=== PATIENT | male | born 1955 | race Caucasian/White ===

== ENCOUNTER 2023-01-23 10:35 | Observation (INO) ==
--- NOTE | 2023-01-14 10:19 | PAT Medication Instructions ---
Medication Instructions Date of Service January 14, 2023 Home Medications lisinopril 10 mg tablet 10 mg PO QAM rivaroxaban 20 mg tablet (Xarelto) 20 mg PO HS ascorbic acid (vitamin C) 500 mg chewable tablet (Vitamin C) 500 mg PO QAM cholecalciferol (vitamin D3) 25 mcg (1,000 unit) capsule (Vitamin D3) 25 mcg PO QAM clobetasol 0.05 % topical cream 1 applic topical BID PRN Skin Irritation mupirocin 2 % topical ointment 1 applic topical BID PRN Skin Irritation Pentadecapeptide 1 cap PO QAM cyanocobalamin (vitamin B-12) 1,000 mcg tablet,extended release (Vitamin B-12 ER) 3,000 mcg PO QAM multivitamin 1 tab PO QAM vit C 250 mg-vit E 90 mg-zinc 40 mg-copper 1 jo-simiiw-drotnu capsule (PreserVision AREDS-2) 1 tab PO QAM ASK your prescriber and surgeon rivaroxaban 20 mg tablet (Xarelto) 20 mg PO HS STOP taking 2 weeks before surgery vit C 250 mg-vit E 90 mg-zinc 40 mg-copper 1 eu-fmrsmr-fooelj capsule (PreserVision AREDS-2) 1 tab PO QAM Pentadecapeptide 1 cap PO QAM STOP taking 24 hours before surgery clobetasol 0.05 % topical cream 1 applic topical BID PRN Skin Irritation mupirocin 2 % topical ointment 1 applic topical BID PRN Skin Irritation DO NOT take the morning of surgery lisinopril 10 mg tablet 10 mg PO QAM ascorbic acid (vitamin C) 500 mg chewable tablet (Vitamin C) 500 mg PO QAM cholecalciferol (vitamin D3) 25 mcg (1,000 unit) capsule (Vitamin D3) 25 mcg PO QAM cyanocobalamin (vitamin B-12) 1,000 mcg tablet,extended release (Vitamin B-12 ER) 3,000 mcg PO QAM multivitamin 1 tab PO QAM OTHERWISE NOTHING TO EAT OR DRINK AFTER MIDNIGHT Other Notes If you have any questions please call us at [phone] or [phone] or [phone] or [phone]
--- NOTE | 2023-01-18 13:01 | Anesthesiology Consultation ---
Date of Service January 18, 2023 Assessment & Plan (1) Encounter for pre-operative examination: - awaiting surgeon ordered cardiology clearance. Will also request copy of cardionet and carotid scan. - cardiology office visit 10/08/22: "...he was working when he started feeling dizziness. [place] better when he was sitting and improved when he sat down...coming and going through the day. At one point he became severely hot, sweaty and vomited...no full syncope or LOC...twice more over the following week. Feels like he is falling. When this happens he always feels like he is leaning to the L...does get some SOB with activity...episode of near syncope with no full LOC. Cannot r/o arrhthymia. Will check cardionet. Check carotid scan...check echo...mother having CAD in her early 50s and two sisters who unexpectedly..." Return in about 4 months. Outpatient joint assessment: Patient is currently scheduled for inpatient pathway. If re-evaluated and patient/surgeon requests outpatient pathway, phillip opal is not recommended candidate for outpatient joint program from anesthesia standpoint. Chart Review Chart Review: Pending: Refer to Additional Notes / Consult section and Patient seen in Pre Admission Testing Teaching & Discussion Pre-Anesthesia Teaching/Discussion Notes: Instructed NPO after midnight before surgery, except medications with 15 cc of water. Medication instructions provided according to the PAT guidelines. History Surgery Operation Date: 01/23/23 07:15 Proposed Procedures p Right Reverse Total Shoulder Arthroplasty - Sidney Jiménez MD Surgeon's office was made aware per patient is to have right total shoulder replacement, NOT reverse TSA. Damaris adjusted this in their records and Aisha with OR confirmed the change. Booking now shows right total shoulder arthroplasty Height/Weight Height: 5 ft 11 in Weight: 108.6 kg Allergies Allergy/AdvReac Type Severity Reaction Status Date / Time No Known Allergies Allergy Verified 01/11/23 10:03 Medications Home Medications Medication Instructions Recorded Confirmed Last Taken lisinopril 10 mg tablet 10 mg PO QAM 07/07/20 01/11/23 09/24/22 rivaroxaban 20 mg tablet (Xarelto) 20 mg PO HS 07/07/20 01/11/23 09/23/22 ascorbic acid (vitamin C) 500 mg 500 mg PO QAM 05/01/23 08/18/23 04/30/23 chewable tablet (Vitamin C) cholecalciferol (vitamin D3) 25 25 mcg PO QAM 09/24/22 01/11/23 09/23/22 mcg (1,000 unit) capsule (Vitamin D3) clobetasol 0.05 % topical cream 1 applic topical BID PRN Skin 09/24/22 01/11/23 Unknown Irritation mupirocin 2 % topical ointment 1 applic topical BID PRN Skin 09/24/22 01/11/23 Unknown Irritation Pentadecapeptide 1 cap PO QAM 01/11/23 01/11/23 Unknown cyanocobalamin (vitamin B-12) 3,000 mcg PO QAM 01/11/23 01/11/23 Unknown 1,000 mcg tablet,extended release (Vitamin B-12 ER) multivitamin 1 tab PO QAM 01/11/23 01/11/23 Unknown vit C 250 mg-vit E 90 mg-zinc 40 1 tab PO QAM 01/11/23 01/11/23 Unknown mg-copper 1 fr-snfxpi-kjuwat capsule (PreserVision AREDS-2) Past Medical History Medical History (Updated 01/18/23 @ 13:04 by Aleksandra Manuel PA-C) Anticoagulant long-term use xarelto daily History of pulmonary embolus (PE) 2018--unknown cause; currently on xarelto Hypertension controlled, stable per pt Near syncope 09/24/22, came to [facility] ER, had "lots of testing," no cause found; f/u dr. weaver on 10/08/22, had ekg and holter monitor>no findings Sleep apnea does not use device-just recently diagnosed Patient denies h/o stroke, seizures, heart attack, heart failure, DM, or blood transfusions. Exercise / Class Metabolic Activity II 4-5 Yardwork/Stairs/Walk up hill (denies chest discomfort or shortness of breath with 1 FOS) Past Family History Family History Mother Cardiac disorder Myocardial infarction COPD (chronic obstructive pulmonary disease) Hypertension Uncle Prostate cancer Diabetes Cardiac disorder Father Lung cancer Hypertension Grandmother Diabetes Other No family history of adverse response to anesthesia Denies family history of Ovarian cancer Breast cancer Colorectal cancer Past Surgical History Surgical History History of tonsillectomy S/P colonoscopy (12/14/15) Status post biopsy of skin (07/01/18) Pigemented seborrheic keratosis Past Anesthesia History No Hx of Anesthesia Complications and No Family Hx of Anesthesia Complications History of PONV No Hx of PONV and No Hx of Motion Sickness Social History Smoking Status: Never smoker Do You Dip or Chew Tobacco: No Hx Alcohol Use: Yes Alcohol type: beer alcohol intake frequency: a few times a month Hx Substance Use: No substance use type: does not use Review of Systems Patient denies chest pain, shortness of breath, dyspnea on exertion, reflux, fever, chills, cough, wheezing, or palpitations. Physical Exam Vital Signs Vitals BP 120/72 P 93 TEMP 98.6 SP02 94% on RA RESP 18 Physical Patient resting comfortably in chair in NAD, alert and oriented, responding appropriately throughout visit Full cervical extension range of motion without pain TMD 3.5 finger breadths Mallampati Score 3 Dentition: several caps/crowns, denies chipped or loose teeth, implants or bridges Lungs: normal respiratory effort. Good air movement, clear throughout to auscultation, no adventitious breath sounds Cardiac: regular rate and rhythm, no murmurs noted Carotid arteries: negative bruit bilat Lab Results Anesthesia Preop Results Results Anesthesia Widget: WBC 5.00 K/ul (4.8-10.8) 01/18/23 Hgb 13.7 g/dl (14.0-18.0) L 01/18/23 Hct 39.7 % (42.0-52.0) L 01/18/23 Plt 257 K/uL (130-400) 01/18/23 Na 140 mmol/L (136-145) 01/18/23 K 3.7 mmol/L (3.5-5.1) 01/18/23 Cl 106 mmol/L (98-107) 01/18/23 CO2 27 mmol/L (21-32) 01/18/23 BUN 19 mg/dl (6-23) 01/18/23 Creat 0.86 mg/dl (0.6-1.4) 01/18/23 Glucose Level 128 mg/dl (70-99(Fasting)) H 01/18/23 PT 11.2 Seconds (9.0-12.0) 01/18/23 PTT 29.3 Seconds (21.0-31.0) 01/18/23 INR 1.0 (0.9-1.1) 01/18/23 Urine Color Yellow 01/18/23 Urine Appearance Clear (Clear) 01/18/23 Urine pH 5.5 (4.5-7.5) 01/18/23 Urine Specific [place] 1.020 (1.000-1.030) 01/18/23 Urine Protein Negative (Negative) 01/18/23 Urine Glucose (UA) Negative (Negative) 01/18/23 Urine Ketones Negative (Negative) 01/18/23 Urine Blood Negative (Negative) 01/18/23 Urine Nitrite Negative (Negative) 01/18/23 Urine Bilirubin Negative (Negative) 01/18/23 Urine Urobilinogen Negative (Negative) 01/18/23 Urine Leukocyte Esterase Negative (Negative) 01/18/23 Blood Type A Positive 01/18/23 Antibody Screen NEGATIVE 01/18/23 Testing Electrocardiogram Date: 09/24/22 Sinus rhythm with marked sinus arrhythmia, rate 71 bpm Chest X-Ray Date: 09/24/22 *1view* Cardiomegaly without acute process Echocardiogram Date: 11/14/22 EF 55-60% No significant valvular pathology Other Testing Head CT 09/24/22 No acute intracranial process. Chest CTA 09/24/22 No evidence of acute pulmonary embolism. CT abdomen pelvis 09/24/22 No acute findings in the abdomen or pelvis.
--- NOTE | 2023-01-21 20:23 | History & Physical Report ---
Date of Service January 21, 2023 Assessment & Plan (1) Primary osteoarthritis, right shoulder: Plan: Treatment options discussed with patient. He has failed conservative measures and would like to proceed with surgery. Risks, benefits and alternatives to surgery including but not limited to infection, DVT, pain, stiffness, need for revision surgery, damage to blood vessels, damage to nerves, PE, , were discussed with the patient and they wish to proceed. Plan on simplicity right total shoulder arthroplasty scheduled for [facility] on 01/23/[address] Jiménez. Resume home Xarelto post op. Plan on outpatient therapy post op. All questions answered. He will follow up post op. History of Present Illness Chief Complaint: Right shoulder pain Primary Care Provider: Yamil Yip, 67yo male with PMHx significant for PE, HTN, CHASE, carotid artery stenosis who presents with ongoing right shoulder pain. Pain is interfering with his daily acitivity. He has failed conservative measures. He would like to proceed with surgical intervention. Patient denies headaches, sweats, fevers, chills, double vision, blurred vision, cough, sore throat, dysphagia, chest pain, sob, wheezing, n/v/d/c, numbness, tingling, fatigue, urinary symptoms, mood disorders. ROS positive for right shoulder pain and stiffness. Allergies Allergy/AdvReac Type Severity Reaction Status Date / Time No Known Allergies Allergy Verified 01/11/23 10:03 Home Medications Medication Instructions Recorded Confirmed Type lisinopril 10 mg tablet 10 mg PO QAM 07/07/20 01/11/23 History rivaroxaban 20 mg tablet (Xarelto) 20 mg PO HS 07/07/20 01/11/23 History ascorbic acid (vitamin C) 500 mg 500 mg PO QAM 09/24/22 01/11/23 History chewable tablet (Vitamin C) cholecalciferol (vitamin D3) 25 25 mcg PO QAM 09/24/22 01/11/23 History mcg (1,000 unit) capsule (Vitamin D3) clobetasol 0.05 % topical cream 1 applic topical BID PRN Skin 09/24/22 01/11/23 History Irritation mupirocin 2 % topical ointment 1 applic topical BID PRN Skin 09/24/22 01/11/23 History Irritation Pentadecapeptide 1 cap PO QAM 01/11/23 01/11/23 History cyanocobalamin (vitamin B-12) 3,000 mcg PO QAM 01/11/23 01/11/23 History 1,000 mcg tablet,extended release (Vitamin B-12 ER) multivitamin 1 tab PO QAM 01/11/23 01/11/23 History vit C 250 mg-vit E 90 mg-zinc 40 1 tab PO QAM 01/11/23 01/11/23 History mg-copper 1 ur-pvcoqh-jwzhyv capsule (PreserVision AREDS-2) Past Med/Surg History Medical History (Updated 01/21/23 @ 20:20 by Isidro Lopez PA-C) Anticoagulant long-term use xarelto daily Carotid artery stenosis < 50% stenosis ICAs bilat History of pulmonary embolus (PE) 2018--unknown cause; currently on xarelto Hypertension controlled, stable per pt Near syncope 09/24/22, came to [facility] ER, had "lots of testing," no cause found; f/u dr. weaver on 10/08/22, had ekg and holter monitor>no findings Sleep apnea does not use device-just recently diagnosed Surgical History History of tonsillectomy S/P colonoscopy (12/14/15) Status post biopsy of skin (07/01/18) Pigemented seborrheic keratosis Family History Mother Cardiac disorder Myocardial infarction COPD (chronic obstructive pulmonary disease) Hypertension Uncle Prostate cancer Diabetes Cardiac disorder Father Lung cancer Hypertension Grandmother Diabetes Other No family history of adverse response to anesthesia Denies family history of Ovarian cancer Breast cancer Colorectal cancer Social History Smoking Status: Never smoker Second Hand Exposure: Yes (hx-none for 7 years); Do You Dip or Chew Tobacco: No; Hx Alcohol Use: Yes Alcohol type: beer Hx Substance Use: No Preferred Language: Kazakh Communication Ability: Effective Visual Impairment: No Limitations Hearing Ability: Normal Rehab Physician Required: No Beliefs That Will Affect Care: None marital status: Single Current Living Situation: Significant Other current occupational status: employed 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 Feels Safe at Home: Yes Childhood Exposure to Second-Hand Smoke: Yes Dental Care, Regularly: Yes Physical Activity Frequency: 1-2 Times per Week Seatbelt Use: sometimes Sunscreen Use: No Assistive Devices: None Review of Systems All systems reviewed & are unremarkable except as noted in HPI & below Physical Exam Constitutional: well developed and well nourished; no acute distress Eyes: PERRL, conjunctivae normal, anicteric sclerae ENMT: external ear and nose normal, oropharynx normal Neck: trachea midline, no thyromegaly Respiratory: normal respiratory effort, lungs clear to auscultation Cardiovascular: RRR, no murmur, no edema Musculoskeletal: Right shoulder: Painful ROM with crepitation. Diffuse tenderness. ER to 30 degrees. FF to 100 degrees. Abduction to 50 degrees. Strength is normal. Skin: no rashes, warm and dry Neurologic: patellar DTR's 2+ bilat, sensation intact Psychiatric: A+Ox3, euthymic affect Results & Data Diagnostic Findings Right shoulder radiographs demonstrate endstage osteoarthritis right shoulder, bone on bone GH joint. MRI demonstrates intact rotator cuff.
[~2023-01-23 10:35] MED LIST: ACETAMINOPHEN 500 MG TAB PO SCH; BUPIVACAINE 0.5 % 5 MG/1 ML PF 10ML VIAL ONE; CeleBREX 200 MG CAP PO SCH; FAMOTIDINE 20 MG TAB PO SCH; GABAPENTIN 300 MG CAP PO SCH; LR 15ML/HR IV SCH; LR 60ML/HR IV SCH; METOCLOPRAMIDE HCL 10 MG TABLET PO SCH; TRANEXAMIC ACID 1,000 MG **IV Intra-op IV SCH; TRANEXAMIC ACID 1,000 MG **IV Pre-op IV SCH; ceFAZolin 2000MG 2,000 MG/15 ML SYR IV SCH; dexAMETHasone 4 MG TAB PO SCH
[2023-01-23] MEDS ORDERED: ONDANSETRON INJ 2 MG/ML 2 ML VIAL IV PRN ×2 (11:11→18:00)
[2023-01-23] MEDS ORDERED: ATROPINE SULFATE 0.1 MG/ML 10ML SYR IV PRN (11:11)
[2023-01-23] MEDS ORDERED: fentaNYL citrate PF 100 MCG/2 ML VIAL IV PRN (11:11)
[2023-01-23] MEDS ORDERED: ePHEDrine sulfate 50 MG/ML AMP IV PRN (11:11)
[2023-01-23] MEDS ORDERED: MIDAZOLAM HCL 1 MG/ML 2ML VIAL ONE (12:34)
[2023-01-23] MEDS ORDERED: PROPOFOL IV EMULSION 10 MG/ML 20 ML VIAL IV ONE (12:35)
[2023-01-23] MEDS ORDERED: LIDOCAINE 2% 2 ML VIAL/AMP(20MG/ML) INFIL ONE (12:35)
[2023-01-23] MEDS ORDERED: ROCURONIUM BROMIDE 10 MG/ML 5 ML VIAL IV ONE (12:35)
[2023-01-23] MEDS ORDERED: fentaNYL citrate PF 100 MCG/2 ML VIAL ONE (12:48)
--- NOTE | 2023-01-23 13:25 | History & Physical Bridge Note ---
Date of Service January 23, 2023 History & Physical Bridge Note I have examined the patient, reviewed the History & Physical and in the interval since the performance of the History & Physical I have noted the following changes of clinical significance: no changes noted
[2023-01-23] MEDS ORDERED: EpINEphrine HCL INJ 1 MG/ML 1ML SYRINGE ONE (13:47)
[2023-01-23] MEDS ORDERED: ePHEDrine sulfate 50 MG/ML AMP ONE (14:40)
[2023-01-23] MEDS ORDERED: DEXAMETHASONE SOD INJ 4 MG/ML VIAL ONE (14:40)
[2023-01-23] MEDS ORDERED: ONDANSETRON INJ 2 MG/ML 2 ML VIAL ONE (14:44)
--- NOTE | 2023-01-23 16:44 | Post Operative Brief Note ---
Immediate Post Op Note v1 Date of Surgery January 23, 2023 Pre & Post Diagnosis Operation Date: 01/23/23 12:15 Pre-Op Diagnosis: Right Shoulder Osteoarthritis, biceps tendinopathy Post-Op Diagnosis: Right Shoulder Osteoarthritis, biceps tendinopathy degenerative glenoid labral tearing I identified the patient and participated in the time-out.: Yes Procedure Operation Date: 01/23/23 12:15 Actual Procedures p Right Total Shoulder Arthroplasty, Biceps Tenodesis(Right) - Sidney Jiménez MD Surgeon Sidney Jiménez MD Ladle Operator Isidro DODGE Estimated Blood Loss 100 Findings Consistent with Post-Op Diagnosis Specimens Humeral head Drains Hemovac Drain Anesthesia Type General Regional Complications none Disposition Disposition: Recovery Room Overlapping Procedure I was immediately available: during the entire case.
[2023-01-23] MEDS ORDERED: GLYCOPYRROLATE 0.2 MG/ML VIAL ONE (17:07)
[2023-01-23] MEDS ORDERED: NEOSTIGMINE METHYLSULFATE 1 MG/ML 10ML VIAL ONE (17:07)
--- NOTE | 2023-01-23 17:13 | Operative Report ---
Post Operative Report Pre & Post Diagnosis Operation Date: 01/23/23 12:15 Pre-Op Diagnosis: Right Shoulder end-stage glenohumeral osteoarthritis with biceps tendinopathy Post-Op Diagnosis: Right Shoulder end-stage glenohumeral osteoarthritis with biceps tendinopathy de generative glenoid labrum tearing I identified the patient and participated in the time-out.: Yes Procedure Operation Date: 01/23/23 12:15 Actual Procedures p Right Total Shoulder Arthroplasty, Biceps Tenodesis(Right) - Sidney Jiménez MD Surgeon Sidney Jiménez MD Glove Machine Operator Isidro DODGE Estimated Blood Loss 100 Findings Consistent with Post-Op Diagnosis Specimens Humeral head Drains 2 Hemovac Anesthesia Type General Regional Complications none Disposition Disposition: Recovery Room Indications 67-year-old male with chronic progressive osteoarthritis right shoulder. Radiographs demonstrate she has dqhf-nd-rqsz glenohumeral joint with type a concentric wear and MRI demonstrates intact rotator cuff with marked biceps tendinopathy tenosynovitis widening of the proximal biceps tendon intra- articularly Description of Procedure Patient was taken to the operating room anesthetized under regional block and general anesthetic. Patient was placed in a 40 degree beachchair position with a foam headrest protective eyewear all extremities padded teds and SCDs were placed. A towel roll was placed on the medial border of the scapula of the right upper extremity. The arm was examined and range of motion demonstrated moderate obesity limited range of motion with 20 degrees external rotation 70 degrees AB duction and 100 degrees forward flexion with usez-qu-lzwy crepitation. An anterior deltopectoral approach was performed. Longitudinal incision was made in deltopectoral interval. Skin incised sharply and subcutaneous flaps elevated. The deltopectoral interval was identified. The cephalic vein demonstrated normal-appearing vein with more lateral alignment. The cephalic vein was retracted laterally with the deltoid. The upper centimeter of the pectoralis was released for inferior exposure. Biceps tendon demonstrated chronic tenosynovitis and proximal in the joint it was markedly widened from chronic tendinopathy extending into a superior labral tear and circumferential glenoid labral tearing. The biceps was tenodesed to the pec toralis tendon using #2 FiberWire [id number]-az-xxfyc sutures. Proximal biceps was resected. Rotator cuff findings demonstrated intact rotator cuff mild bursitis. The bursa was resected. The circumflex vessels were tied off with silk ties and cauterized laterally in the groove. The subscapularis muscle fibers were split at the level of circumflex vessels and released off the inferior capsule with a Kitner elevator and then a blunt Hohmann retractor was placed protect the axillary nerve. The rotator interval was released down to the level of the glenoid. The subscapularis tendon was taken down with a transtendinous incision leaving a cuff of tissue for repair on the lesser tuberosity. The humeral head findings demonstrated eburnated bone with some deformity of the head with moderately large inferior osteophytes from lateral to medial along the inferior aspect. The osteophytes were resected using an artist chisel and rongeur. The inferior capsule was released off the bone subperiosteally using a Palma elevator. A #1 Vicryl traction suture was placed into the free edge of the subscapularis tendon. A Fukuda retractor was placed into the joint. Capsule was released with Grover scissors down to the glenoid and off of the anterior glenoid to the rotator interval which was released to meet the capsular release creating a 360 degree release of subscapularis tendon. An anterior Bankart retractor was placed. The glenoid and labral findings demonstrated a dished out worn glenoid with concentric central wear with eburnated bone no articular cartilage remaining at all with degeneration of the labrum. An anterior- inferior and posterior inferior capsule release was performed electrocautery on bone and a Palma elevator. The axillary nerve was protected inferiorly with the blunt Hohmann. Attention was taken back to the humeral head. Humeral head was exposed with extension and external rotation. The oscillating saw was used to make an anatomic neck cut removing the articular surface. All the circumferential remaining osteophytes were trimmed with a rongeur. The humerus was sized for a 3 nucleus and a 54 mm humeral head. Choices and head size were 52 or 56.. The bone was assessed with a thumb press test and there was solid cancellous bone. The guide for the nucleus was placed centrally and then the guidepin was placed. The surface reamer was used followed by the central drill for the nucleus. The trial nucleus was inserted and the cut protector was placed. The humerus was retracted posterior to the glenoid . A Tornier retractor ,Hohmann retractors as well as an anterior Bankart retractor were placed. The glenoid was fully exposed. The Tornier Cortiloc glenoid was used. The 30 radius medium size was chosen. The central drill hole was made followed by the reamer for the glenoid followed by widening the central hole for the central post. The guide for the peripheral drill holes was placed and the drill holes were made. The trial reduction performed with stable fixation. The trial removed and the glenoid copiously irrigated with pulsed saline solution. The drill holes were packed with epinephrine-soaked tampons. The Palacos G cement was vacuum mixed. The Tornier Cortiloc 30 radius medium glenoid component was then cemented in position after drying the glenoid after removal of the tampons. Fixation was excellent. All excess cement was cleared. When the cement cured we moved onto removing the cut protector doing a trial reduction with a 52 millimeter humeral head trial. Stability was assessed and there was some slight subluxation posteriorly so we went ahead and put the [address] by 21 mm thickness and stability was assessed and was stable through full range of motion. No subluxation was noted.. Soft tissue tension on the subscapularis tendon was satisfactory. The trial components of the humeral head were removed and the 3 drill holes were made in the harder bone in the biceps groove area and transosseous #5 FiberWire sutures were placed. Then the humeral cut surface was reexposed with retractors and after irrigation the size 3 nucleus was impacted leaving it slightly proud until the 56 x 21 mm simplicity humeral head was placed into the nucleus and then both were impacted into the humerus with a tight press-fit. The humerus was reduced to the glenoid. The stability was verified. The subscapularis tendon was repaired in 2 cikppo-jb-arqyf #2 FiberWire sutures. Lateral row fixation was performed with interrupted wsiydu-rr-mowio #2 FiberWire sutures and rotator interval was closed with #2 FiberWire sutures. Range of motion demonstrated 150 degrees forward flexion 45 degrees external rotation 100 agrees of AB duction without tension on repair. The pectoralis was repaired with spqnrw-[id number] #2 FiberWire sutures placing sutures back through the biceps tendon to reinforce the tenodesis. 2 Hemovac drains were placed. The deltopectoral interval was repaired with [id number]-tw-dsget #1 Vicryl sutures. The subcutaneous tissue was repaired with 2- 0 Vicryl sutures and the skin was closed with madhu. Sterile dressings were applied and a sling immobilizer. The patient tolerated the procedure well. Isidro DODGE acted as nurse first assist throughout the procedure. He functioned as nurse first assist assisting in all aspects of the procedure including patient positioning prepping draping, arm positioning, soft tissue retraction,, instrument management, subcutaneous and skin closure and postop care the patient as well. I attest to the content of the Intraoperative Record and any orders documented therein. Any exceptions are noted below.
--- NOTE | 2023-01-23 17:45 | Anesthesiology Progress Note ---
Date of Service January 23, 2023 Anesthesia Post Procedure Vital Signs Vital Signs: Temp Pulse Resp BP Pulse Ox O2 Del Method O2 Flow Rate 01/23/23 17:30 81 20 151/83 H 93 Nasal Cannula 3 01/23/23 17:20 62 23 141/88 H 96 Oxymask 6 01/23/23 17:14 96.8 F L 84 14 135/85 94 Oxymask 6 01/23/23 11:18 97.9 F 70 18 131/80 99 Room Air Transfer of Care Handoff Completed per policy Notes Mental Status: alert / awake / arousable and participated in evaluation Patient Amnestic to Procedure: Yes Nausea / Vomiting: adequately controlled Pain: adequately controlled Airway Patency, RR, SpO2: stable & adequate BP & HR: stable & adequate Hydration State: stable & adequate Anesthetic Complications: no major complications apparent and Pt Satisfied with anesthetic care
[2023-01-23] MEDS ORDERED: TAMSULOSIN HCL 0.4 MG CAP PO PRN (18:00)
[2023-01-23] MEDS ORDERED: oxyCODONE HCL IR 5 MG TAB (IMMEDIATE RELEASE) PO PRN (18:00)
[2023-01-23] MEDS ORDERED: MUPIROCIN 2% OINT 22 GM TUBE TOP PRN (18:00)
[2023-01-23] MEDS ORDERED: bisacodyL 10 MG SUPP PR PRN (18:00)
[2023-01-23] MEDS ORDERED: MAGNESIUM HYDROXIDE SUSP 30 ML UDC PO PRN (18:00)
[2023-01-23] MEDS ORDERED: METOCLOPRAMIDE HCL INJ 5 MG/ML 2 ML VIAL IV PRN (18:00)
[2023-01-23] MEDS ORDERED: HYDROmorphone INJ 0.5 MG/0.5 ML SYR IV PRN (18:00)
[2023-01-23] MEDS ORDERED: NALOXONE HCL 0.4 MG/1 ML VIAL/CARP IV PRN (18:00)
[2023-01-23] MEDS: SODIUM CHLORIDE 0.9% 1,000 ML IV SCH (18:28)
[2023-01-23] MEDS ORDERED: CLOBETASOL PROPIONATE 0.05% OINT 15 GM TUBE EXT PRN (19:12)
--- NOTE | 2023-01-23 19:35 | XRay Report ---
XR shoulder RT min 2V routine CLINICAL HISTORY: Post shoulder surgery COMPARISON: Chest CT September 24, 2022. FINDINGS: Alignment of the right shoulder arthroplasty is anatomic. Surgical drain is in place. Ther e are no unexpected radiopaque foreign bodies. No periprosthetic fracture. IMPRESSION: Expected findings following right shoulder arthroplasty. ACT 112: Negative or not required by law. Electronically signed by: Tony Pastrana M.D. 01/23/2023 7:34 PM
[2023-01-23] MEDS: DOCUSATE SODIUM 100 MG CAP PO SCH (20:22)
[2023-01-23] MEDS ORDERED: SENNA 8.6 MG TAB PO SCH (21:00)
[2023-01-23] MEDS: ceFAZolin 2000MG 2,000 MG/15 ML SYR IV SCH (22:28)
[2023-01-23] MEDS: ACETAMINOPHEN 500 MG TAB PO SCH (22:28)
[2023-01-24] MEDS: SODIUM CHLORIDE 0.9% 1,000 ML IV SCH (04:14)
[2023-01-24] MEDS: ACETAMINOPHEN 500 MG TAB PO SCH (06:16)
[2023-01-24] MEDS: ceFAZolin 2000MG 2,000 MG/15 ML SYR IV SCH (06:16)
[2023-01-24] MEDS: DOCUSATE SODIUM 100 MG CAP PO SCH (07:52)
--- NOTE | 2023-01-24 08:02 | Orthopedic Progress Note ---
Date of Service January 24, 2023 Assessment & Plan (1) Primary osteoarthritis, right shoulder: Plan: Postop day #1 right total shoulder arthroplasty -PT/OT: Per TSA protocol. No active shoulder motion -Pain management as written -DVT prophylaxis: SCDs, resume home Xarelto tonight -A.m. labs: Hemoglobin stable. Leukocytosis likely reactive due to surgical stress versus perioperative steroids. Patient is asymptomatic. -Discharge planning: Plan on discharge home with plans on attending outpatient physical therapy. Plan on discharge today. Admission and Anticipated Discharge Date Admission Date: January 23, 2023 Subjective Patient is resting in bed comfortably. Currently not having any pain. No acute events overnight. No current complaints. Denies chest pain, shortness of breath, nausea/vomiting/diarrhea, headaches or dizziness. Review of Systems Review of Systems: All systems reviewed & are unremarkable except as noted in Subjective Physical Exam Physical Exam: Right shoulder: Dressing is clean, dry, intact. Sling in place. Hemovac on suction. 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 Patient's sensation is intact however decreased. Residual from nerve block. Improving. Constitutional: WD/WN, vitals as above Results & Data Vital Signs (Past 12 Hours) Vital Signs Temp Pulse Resp BP Pulse Ox O2 Del Method 01/24/23 07:26 36.5 C 86 18 132/78 94 Room Air 01/24/23 04:10 36.5 C 91 H 16 141/70 H 93 Room Air 01/23/23 22:17 36.4 C L 106 H 20 119/72 93 Room Air
[2023-01-24 08:33] LABS: Basophils # (auto) 0.02 K/uL (0.00-0.20); Basophils % (auto) 0.2 %; Hematocrit (blood only) 41.2 % (42.0-52.0); Hemoglobin 14.2 g/dl (14.0-18.0); Immature Granulocytes # (auto) 0.06 K/uL (0.01-0.20); Immature Granulocytes % (auto) 0.5 %; Lymphocytes # (auto) 1.03 K/uL (1.20-3.40); Lymphocytes % (auto) 8.6 %; Mean Corpuscular Hemoglobin 30.8 pg (25.0-34.0); Mean Corpuscular Hgb Conc 34.5 g/dL (32.0-36.0); Mean Corpuscular Volume 89.4 fL (80.0-100.0); Mean Platelet Volume 9.1 fL (9.4-12.4); Monocytes # (auto) 0.67 K/uL (0.11-0.59); Monocytes % (auto) 5.6 %; Neutrophils # (auto) 10.26 K/uL (1.40-6.50); Neutrophils % (auto) 85.1 %; Platelet Count 251 K/uL (130-400); RDW Coefficient of Variation 12.1 % (11.5-14.5); RDW Standard Deviation 38.8 fL (36.4-46.3); Red Blood Count 4.61 M/uL (4.70-6.10); White Blood Count 12.04 K/ul (4.8-10.8)
[2023-01-24 08:49] LABS: BUN Creatinine Ratio 16.7 (10-20); Creatinine Clr Calc Pharmacy 108.5 ml/min; Est GFR (African American) 105.7 ml/min; Est GFR (Non-African American) 91.2 ml/min; Potassium 4.2 mmol/L (3.5-5.1)
[2023-01-24] MEDS ORDERED: lisinopril 10 MG TAB PO SCH (09:00)
[2023-01-24] MEDS ORDERED: CHOLECALCIFEROL 1,000 UNITS 25 MCG TAB PO SCH (09:00)
[2023-01-24] MEDS ORDERED: MULTIVITAMIN TAB PO SCH ×2 (09:00)
[2023-01-24] MEDS ORDERED: CEROVITE ADV FORMULA TAB PO SCH (09:00)
[2023-01-24] MEDS ORDERED: ASCORBIC ACID 500 MG TAB PO SCH (09:00)
[2023-01-24] MEDS ORDERED: CYANOCOBALAMIN (B-12) 500 MCG TABLET PO SCH (09:00)
--- NOTE | 2023-01-24 12:35 | Discharge Summary ---
Date of Service January 24, 2023 Admission HPI Per Admitting Provider 67yo male with PMHx significant for PE, HTN, CHASE, carotid artery stenosis who presents with ongoing right shoulder pain. Pain is interfering with his daily acitivity. He has failed conservative measures. He would like to proceed with surgical intervention. Patient denies headaches, sweats, fevers, chills, double vision, blurred vision, cough, sore throat, dysphagia, chest pain, sob, wheezing, n/v/d/c, numbness, tingling, fatigue, urinary symptoms, mood disorders. ROS positive for right shoulder pain and stiffness. Admission Exam Per Admitting Provider Constitutional: well developed and well nourished; no acute distress Eyes: PERRL, conjunctivae normal, anicteric sclerae ENMT: external ear and nose normal, oropharynx normal Neck: trachea midline, no thyromegaly Respiratory:M normal respiratory effort, lungs clear to auscultation Cardiovascular: RRR, no murmur, no edema Musculoskeletal: Right shoulder: Painful ROM with crepitation. Diffuse tenderness. ER to 30 degrees. FF to 100 degrees. Abduction to 50 degrees. Strength is normal. Skin: no rashes, warm and dry Neurologic: patellar DTR's 2+ bilat, sensation intact Psychiatric: A+Ox3, euthymic affect Principal Diagnosis right shoulder osteoarthritis Discharge Exam Right shoulder: Dressing is clean, dry, intact. Sling in place. Hemovac on suction. 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 Patient's sensation is intact however decreased. Residual from nerve block. Improving. Constitutional WD/WN, vitals as above Discharge Data Allergies Allergy/AdvReac Type Severity Reaction Status Date / Time No Known Allergies Allergy Verified 01/23/23 11:13 Consultations 01/22/23 09:55 Consult Hospitalist Routine Procedures Performed Operation Date: 01/23/23 12:15 Actual Procedures p Right Total Shoulder Arthroplasty, Biceps Tenodesis(Right) - Sidney Jiménez MD Ordered Studies 01/23/23 05:00 US - OR guided needle placemen Routine Hospital Course (1) Primary osteoarthritis, right shoulder: Postop day #1 right total shoulder arthroplasty -PT/OT: Per TSA protocol. No active shoulder motion -Pain management as written -DVT prophylaxis: SCDs, resume home Xarelto tonight -A.m. labs: Hemoglobin stable. Leukocytosis likely reactive due to surgical stress versus perioperative steroids. Patient is asymptomatic. -Discharge planning: Plan on discharge home with plans on attending outpatient physical therapy. Plan on discharge today. Lab Results 01/24/23 01/24/23 Range/Units 08:10 08:10 WBC 12.04 H (4.8-10.8) K/ul RBC 4.61 L (4.70-6.10) M/uL Hgb 14.2 (14.0-18.0) g/dl Hct 41.2 L (42.0-52.0) % MCV 89.4 (80.0-100.0) fL MCH 30.8 (25.0-34.0) pg MCHC 34.5 (32.0-36.0) g/dL RDW Std Deviation 38.8 (36.4-46.3) fL RDW Coeff of Coreen 12.1 (11.5-14.5) % Plt Count 251 (130-400) K/uL MPV 9.1 L (9.4-12.4) fL Immature Gran % (Auto) 0.5 % Neut % (Auto) 85.1 % Lymph % (Auto) 8.6 % [place] % (Auto) 5.6 % Eos % (Auto) 0.0 % Baso % (Auto) 0.2 % Neut # (Auto) 10.26 H (1.40-6.50) K/uL Lymph # (Auto) 1.03 L (1.20-3.40) K/uL [place] # (Auto) 0.67 H (0.11-0.59) K/uL Eos # (Auto) 0.00 (0.00-0.50) K/uL Baso # (Auto) 0.02 (0.00-0.20) K/uL Immature Gran # (Auto) 0.06 (0.01-0.20) K/uL Sodium 136 (136-145) mmol/L Potassium 4.2 (3.5-5.1) mmol/L Chloride 106 (98-107) mmol/L Carbon Dioxide 23 (21-32) mmol/L Anion Gap 7 (3-11) BUN 14 (6-23) mg/dl Creatinine 0.84 (0.6-1.4) mg/dl Est Cr Clr Drug Dosing 108.5 ml/min Est GFR ( Amer) 105.7 ml/min Est GFR (Non-Af Amer) 91.2 ml/min BUN/Creatinine Ratio 16.7 (10-20) Glucose 187 H (70-99(Fasting)) mg/dl Calcium 9.0 (8.6-10.3) mg/dl Total Time Total Time Spent Total Time Spent (In Minutes): 20 Discharge Plan Discharge Items Patient Disposition: Home - Self-Care Reason For Visit: POST OP Discharge Diagnosis: Right shoulder osteoarthritis Activity: Per Instructions section Non-emergency contact: Surgeon Call non-emergency contact if: you have any medication questions, your pain is unusual for you, you have a fever, your temperature is above 101, your wound has increased redness and your wound has increased drainage Follow-up/Referrals: Yamil Yip DO [Primary Care Provider] - Diet: Regular Addtl Attending Provider Instructions: ACTIVITY RECOMMENDATIONS: SELF CARE INSTRUCTIONS AFTER TOTAL SHOULDER ARTHROPLASTY A. You may do daily exercises as taught in physical therapy while in hospital. No lifting with the operative arm. Please schedule your outpatient physical therapy appointment to begin within 2-3 days after leaving the hospital. Specific restrictions will be written on your physical therapy prescription that is provided to you. B. You are to wear your sling/immobilizer at all times EXCEPT when performing your daily exercises, participating in physical therapy and for hygiene purposes. C. You may perform dry, daily dressing changes. Please keep your incision covered. You may shower 48 hours after surgery. Do not apply soap or any ointment/lotions directly over incision. Do not soak incision in bath tub/swimming pool. There is a mesh tape dressing that is covered with glue. It should remain in place until the incision is properly healed, usually 10-14 days. This dressing is designed to naturally slough off. You may trim the excess mesh tape as it peels off. Incision may be briefly wet in a shower. Dry immediately by blotting with a clean, dry towel. Do not bath or swim until instructed by your doctor. Do not scratch, rub, or pick at the dressing. Do not apply any topical ointments or lotions until dressing is completely removed and/or instructed by your doctor. There may be a small piece of suture material at one end of your incision. Do not pull or trim this. If it is bothersome or catching on clothing, you may cover it with a band-aid. D. You may use ice as needed to operative shoulder. SPECIAL CARE INSTRUCTIONS: VERY IMPORTANT TO READ AND REVIEW A. There are a few signs you need to watch for after you are home. Call [facility] at [phone] if you experience any of the followin. Increased severe shoulder pain. Some pain is expected especially when you exercise. 2. Increased swelling in you shoulder or arm; pain or swelling in either upper extremity. 3. Any fluid drainage from the incision. 4. Shortness of breath or chest pain. B. Please call [facility] at [phone] if you have any questions or concerns about your operation or recovery. C. Call your physician if: 1. Temperature is greater than 101 degrees (F). 2. Pain is not relieved by prescribed pain medications. 3. Increase drainage or redness from incision. 4. Unanswered questions or concerns. FOLLOW UP VISIT: Please call [facility] at [phone] to schedule a follow up appointment with Dr. Jiménez or his PA in 12-14 days from your surgery date. Stand-Alone Forms: My Raft[employer], Smoking Cessation Medications and DC Order Prescriptions: New acetaminophen [Tylenol Extra Strength] 500 mg Tablet 1,000 mg PO Q8 Qty: 60 0RF oxycodone 5 mg Tablet 5 - 10 mg PO .Q4h-6h MDD 6 PRN (Reason: pain) Qty: 30 0RF Rx Instructions: Ongoing therapy, Dr. Jiménez supervising Continued lisinopril 10 mg tablet 10 mg PO QAM Xarelto 20 mg tablet 20 mg PO HS Rx Instructions: must administer with a meal/food multivitamin Tablet 1 tab PO QAM cyanocobalamin (vitamin B-12) [Vitamin B-12] 1,000 mcg Tablet Extended Release 3,000 mcg PO QAM PreserVision AREDS-2 250-90-40-1 mg Capsule 1 tab PO QAM Pentadecapeptide 1 cap PO QAM clobetasol 0.05 % cream 1 applic TOPICAL BID PRN (Reason: Skin Irritation) Rx Instructions: USE WITH MUPIROCIN CREAM ascorbic acid (vitamin C) [Vitamin C] 500 mg Tablet,Chewable 500 mg PO QAM mupirocin 2 % ointment 1 applic TOPICAL BID PRN (Reason: Skin Irritation) Rx Instructions: USE WITH CLOBETASOL CREAM cholecalciferol (vitamin D3) [Vitamin D3] 25 mcg (1,000 unit) Capsule 25 mcg PO QAM Discharge Orders: Discharge Order (Routine); Ordered 01/24/23 Ordered By: Isidro Lopez Admission Data Admit Date/Time: 01/23/23 17:13 Attending Provider: Sidney Jiménez Admit Provider: Sidney Jiménez Primary Care Provider: Yamil Yip Other Providers: Janusz Howrad Other Interventions: Discharge Summary Assessment (RN) Last Done: 01/24/23 08:47
[2023-01-24] MEDS ORDERED: RIVAROXABAN 20 MG TAB PO SCH (21:00)
--- OUTSIDE RECORDS SUMMARY | 2023-01-26 14:51 | External Medical Summary | Summary of Care ---
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 Disp. Refills Start Date End Date Status XARELTO 20 MG TabletIndications:Pu lmonary embolus and infarction (HCC) Take 1 Tab by mouth daily. 90 Tab 1 08/31/2016 Active lisinopril (PRINIVIL) 10 MG TabletIndications:Es sential hypertension with goal blood pressure less than 140/90 TAKE 1 TAB BY MOUTH DAILY. 30 Tab 0 05/06/2017 Active lisinopril (PRINIVIL) 10 MG TabletIndications:Es sential hypertension with goal blood pressure less than 140/90 TAKE 1 TAB BY MOUTH DAILY. 90 Tab 1 11/05/2016 05/05/2017 Discontinued as of this encounter Active Problems Problem Noted Date Pulmonary embolus and infarction (HCC) 1 Vitamin D deficiency 09/05/2011 Overview: Vitamin D 21.2 Benign neoplasm of colon 01/19/2011 Overview: 2 2 mm sigmoid polyps, 12 mm polyp at 20 cm Essential hypertension with goal blood p ressure less than 140/90 06/24/2009 BMI 34.0-34.9,adult Seborrheic keratosis as of this encounter Immunizations Name Dates Previously Given Next Due Seasonal Influenza, Quadrivalent, No Preserve, I M 03/02/2016,03/18/2015 Seasonal Influenza, Trivalen t, with Preserve, 3yr & Above, Split 05/29/2013,04/03/2010 TD - Tetanus/Diptheria (ADULT) 05/27/2003 TDAP (age 11 and older)(Adacel) 11/21/2010 as of this encounter Social History Tobacco Use Types Packs/Day Years Used Date Never Smoker Smokeless Tobacco: Never Used Alcohol Use Drinks/Week oz/Week Comments Yes 2-3 drinks per week Sex Assigned at Date Recorded Not on file as of this encounter Miscellaneous Notes * Telephone Encounter - Jazzy Donahue LPN - 05/06/2017 10:19 AM EST Pending Prescriptions: Disp Refills lisinopril (PRINIVIL) 10 MG Tablet [Pharm*30 Tab 0 Sig: TAKE 1 TAB BY MOUTH DAILY. * Telephone Encounter - Jazzy Donahue LPN - 05/06/2017 10:03 AM EST Formatting of this note may be different from the original. Pending Prescriptions: Disp Refills lisinopril (PRINIVIL) 10 MG Tablet [Pharm 30 0 Sig: TAKE 1 TAB BY MOUTH DAILY. Last Office Visit: 05/25/2016 Next Office Visit: No Future Appointments Last date the medication was ordered: 11-05-16 Pt needs to estab with a PCP Patient Active Problem List Diagnosis Code Essential hypertension with goal blood pressure less than 140/90 I10 BMI 34.0-34.9,adult Z68.34 Benign neoplasm of colon D12.6 Vitamin D deficiency E55.9 Seborrheic keratosis L82.1 Pulmonary embolus and infarction (HCC) I26.99 Labs: CREATININE(mg/dL) [place] Dt/Tm Resulted Value Status 10/07/15 2:53P 10/07/15 1.1 FINAL POTASSIUM(mmol/L) [facility] Dt/Tm Resulted Value Status 10/07/15 2:53P 10/07/15 4.4 FINAL TSH(uIU/mL) [facility] Dt/Tm Resulted Value Status 09/05/11 6:36P 09/06/11 2.11 FINAL LDL (CALCULATED)(mg/dL) [facility] Dt/Tm Resulted Value Status 10/07/15 2:53P 10/07/15 132* FINAL LDL DIRECT(REFLEX)(mg/dL) [facility] Dt/Tm Resulted Value Status 10/07/15 2:53P 10/07/15 FINAL Value: NOT APPLICABLE ALT(U/L) [facility] Dt/Tm Resulted Value Status 09/10/12 6:40P 09/11/12 32 FINAL Hemoglobin AIC Results: No HEMOGLOBIN, A1C components found in this encounter Plan of Treatment Health Maintenance Due Date Last Done Comments *URINE PROTEIN ONCE FOR HTN-DIPSTICK ACCEPTABLE 05/19/2014 *DEPRESSION SCREENINGDOMINIC FOR PTS 18 AND OVER 06/27/2014 *BASIC METABOLIC PANEL (BMP) FOR HTN YEARLY 10/09/2016 Influenza Vaccine (FLU shot) (#1) 2016 03/02/2016, 03/18/2015, 05/29/2013, Additional history exists DIABETES SCREEN EVERY 3 YRS- AGE 45 AND ABOVE 10/06/2018 10/07/2015, 09/10/2012, 09/05/2011, Additional history exists COLONOSCOPY-EVERY 3 YRS AGES 18-100 12/13/2018 12/14/2015, 12/14/2015, 09/19/2012, Additional history exists LIPID SCREEN EVERY 5 YRS-MEN AGE 35-75 10/06/2020 10/07/2015, 09/10/2012, 09/05/2011, Additional history exists TETANUS EVERY 10 YRS-TDAP (BOOSTRIX/ADACEL) SUGGESTED IF NOT RECEIVED IN PAST 11/21/2020 11/21/2010, 05/27/2003 as of this encounter Implants Not on fileas of this encounter Visit Diagnoses Diagnosis Essential hypertension with goal blood pressure less than 140/90 in this encounter Insurance Payer Benefit Plan / Group Subscriber ID Type Phone Address [facility] [id number] [phone] [place] [phone] as of this encounter
--- OUTSIDE RECORDS SUMMARY | 2023-01-26 14:51 | External Medical Summary ---
Author Name Unknown Address [address] [id number] Phone Organization K01:[facility] [address] [facility] [address] Laboratory Report Ordering Provider Test Date Status CARMELO RALPH MD [id number] Final Obs # Observation Date Value Abnormality Reference Status Performing Location 0 Hep C Ab [id number] NEGATIVE NEG Final [facility] [address] [facility] [address]
--- OUTSIDE RECORDS SUMMARY | 2023-01-26 14:51 | External Medical Summary ---
Author Name Unknown Address [facility] [address] [id number] Phone Organization K01:[facility] [address] [address] Laboratory Report Ordering Provider Test Date Status CARMELO RALPH MD [id number] Final Obs # Observation Date Value Abnormality Reference Status Performing Location 0 BUN [id number] 14 6-20 Final [facility] [address] [facility] [address] 1 Creatinine [id number] 1.1 0.6-1.2 Final [facility] [address] [facility] [address]
--- OUTSIDE RECORDS SUMMARY | 2023-01-26 14:52 | External Medical Summary ---
Author Name CARMELO HERNANDEZ Organization K01:[facility], [facility] [address] [address] Support Name Relationship Address Phone LOREE RHODES MD Unknown Unavailab le Laboratory Report Ordering Provider Test Date Status LOREE RHODES MD 09/05/2011 18:36:00-0400 Final Obs # Observation Date Value ABNL Reference Status Pe rforming Location 1 25OH VITAMIN D TOTAL 09/07/2011 11:22-0400 21.2 L 30.0-100.0 ng/mL Final Deficient: <20.0 ng/mL Insufficient: 20.0-29.9 ng/ml Sufficient: 30.0-100.0 ng/ml High: >100.0 ng/ml Refer to [facility] Osteoporosis for Practitioners Best Practice Guidelines for therapeutic recommendations.
--- OUTSIDE RECORDS SUMMARY | 2023-01-26 14:52 | External Medical Summary ---
Author Name Unknown Address [address] [place] [address] [place] [address] Phone Organization K08:[address] [place] [address] Laboratory Report Ordering Provider Test Date Status CARMELO RALPH MD [id number] Final Obs # Observation Date Value Abnormality Reference Status Performing Location 0 hours fasting [id number] PATIENT NOT FASTING Final [address] [place] [address] 1 Triglyceride [id number] 164 <[address] [place] [address]
--- OUTSIDE RECORDS SUMMARY | 2023-01-26 14:52 | External Medical Summary ---
Author Name CARMELO HERNANDEZ Organization K01:[facility], [address] [address] Support Name Relationship Address Phone LOREE RHODES MD PROV Unknown Unavailab le Laboratory Report Ordering Provider Test Date Status LOREE RHODES MD 09/10/2012 18:40:00-0400 Final Obs # Observation Date Value ABNL Reference Status Pe rforming Location 1 BUN 09/11/2012 15:22-0400 21 H 6-20 mg/dL Final 2 Creatinine 09/11/2012 15:22-0400 1.2 0.6-1.3 mg/dL Final GFR should be used to assess renal function. Plasma/Serum creatinine may not be able to properly reflect renal function in some cases.
--- OUTSIDE RECORDS SUMMARY | 2023-01-26 14:52 | External Medical Summary ---
Author Name CARMELO HERNANDEZ Organization K01:[facility], [address] [address] Support Name Relationship Address Phone LOREE RHODES MD PROV Unknown Unavailab le Laboratory Report Ordering Provider Test Date Status LOREE RHODES MD 09/05/2011 18:36:00-0400 Final Obs # Observation Date Value ABNL Reference Status Pe rforming Location 1 BUN 09/06/2011 14:31-0400 16 6-20 mg/dL Final 2 Creatinine 09/06/2011 14:31-0400 1.0 0.6-1.3 mg/dL Final GFR should be used to assess renal function. Plasma/Serum creatinine may not be able to properly reflect renal function in some cases.
--- OUTSIDE RECORDS SUMMARY | 2023-01-26 14:52 | External Medical Summary ---
Author Name CARMELO HERNANDEZ Organization K01:[facility], [address] [address] Support Name Relationship Address Phone LOREE RHODES MD PROV Unknown Unavailab le Laboratory Report Ordering Provider Test Date Status LOREE RHODES MD 09/05/2011 18:36:00-0400 Final Obs # Observation Date Value ABNL Reference Status Pe rforming Location 1 Albumin 09/06/2011 14:31-0400 4.4 3.8-5.0 g/dL Final 2 Sex Hormone Binding Globulin 09/06/2011 16:49-0400 20 12-91 nmol/L Final 3 Testosterone, total 09/06/2011 15:07-0400 240.1 193-740 ng/dL Final 4 Free Testosterone, calculated 09/06/2011 16:49-0400 59.2 35.1-130.4 pg/mL Final 5 Bioavailable Testosterone, calculated 09/06/2011 16:49-0400 141.8 78.9-334.8 ng/dL Final
--- OUTSIDE RECORDS SUMMARY | 2023-01-26 14:52 | External Medical Summary ---
Author Name CARMELO HERNANDEZ Organization K01:[facility], [address] [address] Support Name Relationship Address Phone LOREE RHODES MD PROV Unknown Unavailab le Laboratory Report Ordering Provider Test Date Status LOREE RHODES MD 09/05/2011 18:36:00-0400 Final Obs # Observation Date Value ABNL Reference Status Pe rforming Location 1 TSH 09/06/2011 16:49-0400 2.11 0.27-4.2 uIU/mL Final
--- OUTSIDE RECORDS SUMMARY | 2023-01-26 14:52 | External Medical Summary ---
Author Name CARMELO HERNANDEZ Organization K08:[facility] [address] [place] [address] Support Name Relationship Address Phone LOREE RHODES MD Unknown Unavailab le Laboratory Report Ordering Provider Test Date Status LOREE RHODES MD 09/05/2011 18:36:00-0400 Final Obs # Observation Date Value ABNL Reference Status Pe rforming Location 1 hours fasting 09/05/2011 18:38-0400 PATIENT NOT FASTING hours Final 2 Triglyceride 09/06/2011 14:31-0400 220 H <200 mg/dL Final TRIGLYCERIDE REFERENCE RANGES (mg/dL) <150 NORMAL 150-199 BORDERLINE HIGH 200-499 HIGH >499 VERY HIGH TOTAL CHOLESTEROL REFERENCE RANGES(mg/dL) <200 DESIRABLE 200-239 BORDERLINE HIGH >239 HIGH HDL CHOLESTEROL REFERENCE RANGES(mg/dL) <40 LOW >59 HIGH LDL CHOLESTEROL REFERENCE RANGES(mg/dL) <100 OPTIMAL GOAL FOR HIGH RISK PATIENTS 100-129 NEAR OR ABOVE NORMAL 130-159 BORDERLINE HIGH 160-189 HIGH >189 VERY HIGH
--- OUTSIDE RECORDS SUMMARY | 2023-01-26 14:52 | External Medical Summary ---
Author Name CARMELO HERNANDEZ Organization K01:[facility], [address] [address] Support Name Relationship Address Phone LOREE RHODES MD PROV Unknown Unavailab le Laboratory Report Ordering Provider Test Date Status LOREE RHODES MD 09/05/2011 18:36:00-0400 Final Obs # Observation Date Value ABNL Reference Status Pe rforming Location 1 PSA 09/06/2011 17:20-0400 0.44 <3.1 ng/mL Final RESULTS RECHECKED
--- OUTSIDE RECORDS SUMMARY | 2023-01-26 14:52 | External Medical Summary ---
Author Name CARMELO HERNANDEZ Organization K08:[facility] [address] [place] [address] Support Name Relationship Address Phone LOREE RHODES MD Unknown Unavailab le Laboratory Report Ordering Provider Test Date Status LOREE RHODES MD 09/10/2012 18:40:00-0400 Final Obs # Observation Date Value ABNL Reference Status Pe rforming Location 1 hours fasting 09/10/2012 18:47-0400 PATIENT NOT FASTING hours Final 2 Triglyceride 09/11/2012 15:22-0400 123 <200 mg/dL Final TRIGLYCERIDE REFERENCE RANGES (mg/dL) <150 NORMAL 150-199 BORDERLINE HIGH 200-499 HIGH >499 VERY HIGH TOTAL CHOLESTEROL REFERENCE RANGES(mg/dL) <200 DESIRABLE 200-239 BORDERLINE HIGH >239 HIGH HDL CHOLESTEROL REFERENCE RANGES(mg/dL) <40 LOW(UNDESIRABLE) >59 HIGH(DESIRABLE) LDL CHOLESTEROL REFERENCE RANGES(mg/dL) <100 OPTIMAL GOAL FOR HIGH RISK PATIENTS 100-129 NEAR OR ABOVE NORMAL 130-159 BORDERLINE HIGH 160-189 HIGH >189 VERY HIGH
--- OUTSIDE RECORDS SUMMARY | 2023-01-26 14:52 | External Medical Summary ---
Author Name CARMELO HERNANDEZ Organization K01:[facility], [address] [address] Support Name Relationship Address Phone LOREE RHODES MD PROV Unknown Unavailab le Laboratory Report Ordering Provider Test Date Status LOREE RHODES MD 09/10/2012 18:40:00-0400 Final Obs # Observation Date Value ABNL Reference Status Pe rforming Location 1 LYME G/M AB 3 12:14-040 0 NEGATIVE NEG Final 2 B. burgdorferi IgG / IgM Index (Lyme Dz) 3 12:14-040 0 0.07 <0.91 INDEX Final 3 LYME G/M COMMENT 3 12:14-040 0 Lyme screen negative,per CDC guidelines Western blot testing not performed. Final
== END 2023-01-24 10:40 | disposition home or self-care (01) ==
LOC: ASU 10:35 → 3E 10:35